=== PATIENT | male | born 1950 | race Caucasian/White ===

== ENCOUNTER 2019-09-05 09:30 | Outpatient (CLI) | payer MEDICARE, OTHER ==
--- NOTE | 2019-09-05 10:03 | RAD ---
XR Chest Pa Lat STANDARD HISTORY: Malignant neoplasm of bladder, shortness of breath COMPARISON: 08/28/2018 FINDINGS: The heart size is normal. The lungs are well expanded without focal areas of consolidation, pneumothorax or pleural effusions. Bony structures are unremarkable. IMPRESSION: No radiographic evidence of acute cardiopulmonary process.
== END 2019-09-05 09:31 | disposition home or self-care (01) ==
LOC: NAV RAD 09:30
PROVIDERS: ATTEND Urology
DX: C67.9 Malignant neoplasm of bladder, unspecified (principal); Z71.6 Tobacco abuse counseling
CPT/HCPCS: 71046

== ENCOUNTER 2021-08-22 08:46 | Outpatient (CLI) | payer MEDICARE, OTHER ==
[2021-08-22] MEDS ORDERED: Iopamidol 370 76% 100 ML VIAL ONE (09:00)
== END 2021-08-22 08:47 | disposition home or self-care (01) ==
LOC: NAV CT 08:46
PROVIDERS: ATTEND Urology
DX: C67.9 Malignant neoplasm of bladder, unspecified (principal); Z98.890 Other specified postprocedural states
CPT/HCPCS: 36415; 74178; 82565; Q9967

== ENCOUNTER 2022-08-28 10:14 | Outpatient (CLI) | payer MEDICARE, OTHER, MEDICAID ==
[~2022-08-28 10:14] MED LIST: Iopamidol 370 76% 100 ML VIAL ONE
== END 2022-08-28 10:15 | disposition home or self-care (01) ==
LOC: NAV CT 10:14
PROVIDERS: ATTEND Urology
DX: Z01.818 Encounter for other preprocedural examination (principal); C67.9 Malignant neoplasm of bladder, unspecified; N28.9 Disorder of kidney and ureter, unspecified; K43.9 Ventral hernia without obstruction or gangrene; K80.20 Calculus of gallbladder without cholecystitis without obstruction; Z98.890 Other specified postprocedural states
CPT/HCPCS: 36415; 74178; 82565; Q9967

== ENCOUNTER 2023-05-25 13:39 | Emergency (ER) | payer MEDICARE, OTHER ==
[2023-05-25] MEDS ORDERED: Tetracaine 0.5% PF 4 ML BOT ONE (14:16)
[2023-05-25] MEDS ORDERED: Sodium Chloride 0.9% 100 ML ONE (14:50)
[2023-05-25] MEDS ORDERED: cefTRIAXone (ROCEPHIN) 2 GM VIAL ONE (14:50)
[2023-05-25] MEDS ORDERED: Ondansetron PF 4 MG/2 ML Vial ONE (14:55)
[2023-05-25] MEDS ORDERED: Morphine 2 MG/ML VIAL ONE (14:55)
[2023-05-25 14:56] LABS: #Basophils 0.1 thou/uL (0.0-0.2); #Eosinphils 0.2 thou/uL (0.0-0.7); #Lymphocytes 1.7 thou/uL (1.20-3.40); #Monocytes 0.5 thou/uL (0.11-0.59); %Basophils 0.7 % (0.0-1.0); %Eosinophils 2.4 % (0.0-10.0); %Lymphocytes 20.5 % (21.0-51.0); %Monocytes 5.5 % (0.0-10.0); %Neutrophils 70.9 % (42.0-75.0); Hematocrit 46.9 % (42.0-52.0); Hemoglobin 14.9 g/dL (14.0-18.0); Mean Corpuscular HGB CONC 31.9 g/dL (32.0-36.0); Mean Corpuscular Hemoglobin 29.9 pg (27.0-31.0); Mean Corpuscular Volume 93.8 fl (78.0-98.0); Platelet Count 277 10x3/uL (130-400); White Blood Cell (WBC) Count 8.5 10x3/uL (4.8-10.8)
[2023-05-25 15:15] LABS: ALT (SGPT) 14 U/L (8-55); AST (SGOT) 13 U/L (5-34); Albumin 3.9 g/dL (3.4-4.8); Alkaline Phosphatase 78 U/L (40-110); Anion Gap 15 mmol/L (10-20); BUN (Urea Nitrogen) 10 mg/dL (8.4-25.7); Bilirubin, Total 0.7 mg/dL (0.2-1.2); Calc. Creatinine Clearance 0 mL/min (70-130); Calcium 9.4 mg/dL (7.8-10.44); Carbon Dioxide 24 mmol/L (23-31); Chloride 102 mmol/L (98-107); Estimated GFR 92; Globulin 3.3 g/dL (2.4-3.5); Glucose 187 mg/dL (83-110); Protein, Total 7.2 g/dL (5.8-8.1); Sodium 137 mmol/L (136-145)
== END 2023-05-25 16:19 | disposition home or self-care (01) ==
LOC: NAV ERS 13:39
DX: L03.213 Periorbital cellulitis (principal); E11.9 Type 2 diabetes mellitus without complications; F17.210 Nicotine dependence, cigarettes, uncomplicated; I48.91 Unspecified atrial fibrillation; I10 Essential (primary) hypertension; Z79.01 Long term (current) use of anticoagulants; Z79.84 Long term (current) use of oral hypoglycemic drugs
CPT/HCPCS: 36415; 70481; 80053; 85025; 96365; 96375; J0696; J2272; J2405; J3490; Q9967

== ENCOUNTER 2023-10-01 08:22 | Outpatient (CLI) | payer MEDICARE, MEDICAID ==
[2023-10-01] MEDS ORDERED: Iopamidol 370 76% 100 ML VIAL ONE (09:00)
== END 2023-10-01 08:23 | disposition home or self-care (01) ==
LOC: NAV CT 08:22
PROVIDERS: ATTEND Urology
DX: Z01.818 Encounter for other preprocedural examination (principal); C67.9 Malignant neoplasm of bladder, unspecified
CPT/HCPCS: 36415; 71046; 74178; 82565; Q9967

== ENCOUNTER 2024-09-15 08:58 | Outpatient (CLI) | payer MEDICARE, MEDICAID | END 2024-09-15 08:59 | disposition home or self-care (01) | LOC: NAV CT 08:58 | PROVIDERS: ATTEND Urology | DX: C67.9 Malignant neoplasm of bladder, unspecified (principal); Z72.0 Tobacco use; Z98.890 Other specified postprocedural states | CPT/HCPCS: 36415; 71046; 74178; 82565 ==